=== PATIENT | male | born 1950 | race Caucasian/White ===

== ENCOUNTER 2019-12-04 12:22 | Inpatient (IN) | payer OTHER ==
[~2019-12-04] VITALS: Ht 172.7 cm; Wt 81.1 kg
[~2019-12-04 12:22] MED LIST: PLAVIX 75 MG TA75 MG PO
[2019-12-04 12:23] VITALS: BP 111/63
[2019-12-04] MEDS ORDERED: ATORVASTATIN CA80 MG PO (12:46)
[2019-12-04] MEDS ORDERED: NEURONTIN 300M300 M2 PO (12:46)
[2019-12-04] MEDS ORDERED: LOVASTATIN 20 M20 MG PO (12:46)
[2019-12-04] MEDS ORDERED: SYMBICORT160 MCG/4. INH (12:47)
[2019-12-04] MEDS ORDERED: FLONASE 0.05%50 MCG NARES (12:47)
[2019-12-04] MEDS ORDERED: B12 ACTIVE1000 MCG PO (12:47)
[2019-12-04] MEDS ORDERED: IBUPROFEN 200200 M1 PO (12:47)
[2019-12-04] MEDS ORDERED: ASA81BEC PO (12:47)
[2019-12-04] MEDS ORDERED: COMBIVENT INH (12:48)
[2019-12-04 12:58] LABS: HEMATOCRIT 34.3 % (42.0-52.0); HEMOGLOBIN 11.6 gm/dL (14.0-18.0); MCH 32.8 pg (26.0-34.0); MCHC 33.8 g/dL (28.0-37.0); MPV 6.4 fl. (7.2-11.1); RBC 3.53 mil/uL (4.50-6.00); RDW-CV 15.8 % (10.5-14.5); WBC 7.7 thou/uL (4.0-11.0)
[2019-12-04 13:08] LABS: CALCIUM 8.2 mg/dL (8.5-10.1); CREATININE 2.3 mg/dL (0.6-1.3); POTASSIUM 3.4 mmol/L (3.5-5.1)
[2019-12-04 13:10] LABS: APTT 25.2 Seconds (25.0-31.3); PROTIME 10.7 Seconds (9.20-11.50)
[2019-12-04 13:12] LABS: ALBUMIN 2.8 g/dL (3.4-5.0); TOTAL BILIRUBIN 0.3 mg/dL (<0.1-1.0); TOTAL PROTEIN 6.6 g/dL (6.4-8.2)
[2019-12-04 15:18] VITALS: BP 128/60
[2019-12-04 16:11] VITALS: BP 133/46
--- NOTE | 2019-12-04 16:43 | EKG ---
[place] [address] ELECTROCARDIOGRAM REPORT Name: JAGDISH PEDRAZA Room: [address] ADM IN M.R.#: [id number] Admission: 12/04/19 Attend Phys: Felipa Sebastian, Discharge: Date of : 50 Date of Service: 12/04/19 1249 Report #: [id number] THIS REPORT FOR: cc: [facility] - Clinic physician unknown [facility] - Clinic physician unknown Rm Bravo MD [facility] ~ THIS REPORT FOR: //name// [facility] ED Test Date: 2019-12-04 Test Time: 12:49:58 Pat Name: JAGDISH PEDRAZA Department: Room: [facility] Gender: M 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: : 1950 Requested By: Eugenia Mulligan Order Number: [id number] MD: Rm Bravo Measurements Intervals [place] Rate: 71 P: 0 [place]: 201 QRS: 38 QRSD: 104 T: 30 QT: 388 QTc: 422 Interpretive Statements Sinus rhythm Borderline low voltage, extremity leads Compared to ECG 12/03/2019 13:18:43 T-wave abnormality persists Electronically Signed On 12-04-2019 16:42:24 AD OPERATIONS SPECIALIST by Rm Bravo [email or web address] <ELECTRONICALLY SIGNED> By: Rm Bravo MD, [facility] 12/04/19 1642 1249 1249 Rm Bravo MD, [facility] /EPI
--- NOTE | 2019-12-04 17:36 | NUR ---
PT ADMITTED TO ROOM 219 VIA CART FROM ED FOLLOWING MRI AT APPROXIMATELY 1600. REPORT RECEIVED FROM RAYA CAMPUZANO. PT ORIENTED TO ROOM AND CALL LIGHT. ADMISSION ASSESSMENT AND HISTORY COMPLETED. REFER TO CHARTING. SEPSIS SCREENING NEGATIVE. PT A&0X3-4, FORGETFUL AT TIMES, GARBLED SPEECH NOTED. NIH COMPLETED- SCORING A 5 DUE TO GARBLED SPEECH, ORIENTATION AND RIGHT FACIAL DROOP. NO DRIFT NOTED TO UPPER OR LOWER EXTREMITIES. PT BROTHER AND SISTER IN [place] AT BEDSIDE. TRACING SR ON THE STEEL FIXER. ON 2L NC SAT 98%. DIMINISHED LUNG SOUNDS NOTED. BEDSWIDE SWALLOW COMPLETED- PT PASSED WITH NO DIFFICULTIES. DIET ADVANCED TO 2 GM NA. IVF. NEURO CONSULT AND PHYSICAL THERAPY CONSULT IN PLACE. PT STATES HE LIVES AT HOME BY HIMSELF IN AN APARTMENT. PT HAD MRI. REFER TO RESULTS. MEDICATIONS PER MAR. PT REPOSITIONS SELF. HOURLY ROUNDING OBSERVED. BED IN LOW POSITION. CALL LIGHT WITHIN REACH. FALL PRECAUTIONS IN PLACE. WILL CONTINUE PLAN OF CARE.
[2019-12-04 20:00] VITALS: BP 97/55
[2019-12-05] VITALS: BP 134/59
--- NOTE | 2019-12-05 03:40 | NUR ---
PT DROWSEY NIHSS 11. DAY SHIFT REPORTED 5. DR DOBSON NOTIFIED. HEPARIN QTT AND CT OF HEAD ORDERED. HEPARIN QTT RUNNING AT 993 UNITS/HR. CT DONE. MRI OF HEAD ORDERED FOR MORNING. TURN Q 2 HRS. NS AT 100MLS/HR. DENIES PAIN. TELEMETRY SHOWS SR PACS. WCTM.
[2019-12-05 04:00] VITALS: BP 116/51
[2019-12-05 04:20] LABS: HEMATOCRIT 30.6 % (42.0-52.0); HEMOGLOBIN 10.5 gm/dL (14.0-18.0); MCH 33.4 pg (26.0-34.0); MCHC 34.3 g/dL (28.0-37.0); MCV 97.3 fL (80.0-100.0); MPV 6.4 fl. (7.2-11.1); RBC 3.15 mil/uL (4.50-6.00); WBC 8.3 thou/uL (4.0-11.0)
[2019-12-05 04:43] LABS: ALBUMIN 2.4 g/dL (3.4-5.0); ALKALINE PHOSPHATASE 83 U/L (46-116); ANION GAP 12 mmol/L (7-16); BUN 24 mg/dL (7-18); CALCIUM 6.9 mg/dL (8.5-10.1); CHLORIDE 107 mmol/L (98-107); CHOLESTEROL 100 mg/dL (<200); CO2 23 mmol/L (21-32); CREATININE 1.9 mg/dL (0.6-1.3); GLUCOSE 111 mg/dL (70-99); HDL CHOLESTEROL 32 mg/dL (>40); LDL CHOLESTEROL 55 mg/dL (<100); MAGNESIUM 1.5 mg/dL (1.8-2.4); POTASSIUM 3.2 mmol/L (3.5-5.1); SGOT 16 U/L (15-37); SGPT 21 U/L (30-65); SODIUM 142 mmol/L (136-145); TC:HDL 3.1 Ratio (Not establshd); TOTAL BILIRUBIN 0.2 mg/dL (<0.1-1.0); TOTAL PROTEIN 5.7 g/dL (6.4-8.2); TRIGLYCERIDE 66 mg/dL (<150); VLDL 13 mg/dL (<40)
[2019-12-05 04:51] LABS: SERUM ASSESSMENT CLEAR
--- NOTE | 2019-12-05 05:11 | NUR ---
PTT BACK AT 68.5. NO CHANGE IN HEPARIN QTT RATE.
--- NOTE | 2019-12-05 06:36 | NUR ---
NO VOID BLADDER SCAN 400. PT UNABLE TO VOID. RUCKER PLACED. AM K+ 3.2. SECOND IV PLACED IV POTASSIUM STARTED.
[2019-12-05 07:50] VITALS: BP 127/61
--- NOTE | 2019-12-05 11:27 | NUR ---
ASSUMED CARE OF PT AT 0730. PT RESTING IN BED. BROTHER AT BEDSIDE. PT ALERT, AWAKE AND ORIENTED X2, GARBLED SPEECH NOTED. PT SLOW TO RESPOND, NIH CHARTED. PT NPO FOR [facility]. DR COLON HERE TO SEE PT. ORDERS RECEIVED FOR 1 L BOLUS NS AND DISCONTINUE HEPARIN GTT. REFER TO EMAR. CURRENT BLOOD PRESSURE 160/73. POTASSIUM BEING REPLACED IV PER ELECTROLYTE PROTOCOL. PT DENIES ANY PAIN OR SHORTNESS OF BREATH. TRACING SR ON THE SEAMLESS HOSIERY KNITTER. ON 2L NC SAT UPPER 90'S, DIMINISHED LUNG SOUNDS. RUCKER TO DEPENDENT DRAINAGE WITH DARK YELLOW URINE. PT GOAL FOR TODAY IS SPEECH THERAPY EVAL, REHAB CONSULT IN PLACE, WORK WITH PHYSICAL AND OCCUPATIONAL THERAPY AND REPLACE MAG AND POTASSIUM. AM ASSESSMENT CHARTED. MEDICATIONS PER DEC. PT REPOSITIONED EVERY 2 HOURS FOR COMFORT. HOURLY ROUNDING OBSERVED. BED IN LOW POSITION. BED ALARM IN PLACE. FALL PRECAUTIONS IN PLACE. CALL LIGHT WITHIN REACH. WILL CONTINUE PLAN OF CARE.
--- NOTE | 2019-12-05 11:40 | NUR ---
Acute rehab consult placed.
--- NOTE | 2019-12-05 12:12 | NUR ---
CM spoke with dtr and brother at bedside. Discussed dispo options, rehab consult placed. Pt resides at home alone, [place], but brother and J LUIS live in [place]. If Pt does not qualify for acute rehab, preference for skilled would be a SNF in or near . Following.
[2019-12-05 12:23] VITALS: BP 160/73
--- NOTE | 2019-12-05 17:48 | 2DMMODE ---
[place] [address] 2 D/M-MODE ECHOCARDIOGRAM Name: JAGDISH PERDAZA Room: [address] IN [facility]#: [id number] Admission: 12/04/19 Attend Phys: Felipa Sebastian, Discharge: Date of : 50 Date of Service: 12/05/19 1747 Report #: [id number] THIS REPORT FOR: cc: [facility] - Clinic physician unknown [facility] - Clinic physician unknown Camacho Figueroa MD [facility] ~ APPROVED REPORT Study performed: 12/05/2019 15:08:30 EXAM: Comprehensive 2D, Doppler, and color-flow Echocardiogram Patient Location: In-Patient Room #: [facility] Status: routine BSA: 1.96 HR: 67 bpm BP: 127/61 mmHg Rhythm: NSR Other Information Study Quality: Good Indications CVA/TIA Echo Enhancing Agent Indication: Rule out Shunt Agent(s) / Amount(s) Used: Agitated Saline 10 cc 2D Dimensions IVSd: 10.54 (7-11mm) LVOT Diam: 21.56 (18-24mm) LVDd: 49.67 mm PWd: 8.65 (7-11mm) Ascending Ao: 33.30 (22-36mm) LVDs: 29.64 (25-40mm) Aortic Root: 28.62 mm Volumes Left Atrial Volume (Systole) LA ESV Index: 23.80 mL/m2 Aortic Valve AoV Peak Jhon.: 1.33 m/s AO Peak Gr.: 7.03 mmHg LVOT Max P.81 mmHg AO Mean Gr.: 4.58 mmHg LVOT Mean P[place]72 [place] [address] 2 D/M-MODE ECHOCARDIOGRAM Name: JAGDISH PEDRAZA Room: [address] IN .R.#: [id number] Admission: 12/04/19 Attend Phys: Felipa Sebastian, Discharge: Date of : 50 Date of Service: 12/05/19 1747 Report #: [id number] LVOT Max V: 0.98 m/s AO V2 VTI: 26.11 cm LVOT Mean V: 0.59 m/s SALOMON (VTI): 2.88 cm2 LVOT V1 VTI: 20.57 cm Mitral Valve E/A Ratio: 0.84 MV Decel. Time: 234.13 ms MV E Max Jhon.: 0.68 m/s MV PHT: 67.90 ms MVA (PHT): 3.24 cm2 TDI E/Lateral E': 5.67 E/Medial E': 6.80 Medial E' Jhon.: 0.10 m/s Lateral E' Jhon.: 0.12 m/s Pulmonary Valve PV Peak Jhon.: 0.95 m/s PV Peak Gr.: 3.64 mmHg Left Ventricle The left ventricle is normal size. There is normal LV segmental wall motion. There is normal left ventricular wall thickness. Left ventricular systolic function is normal. LVEF is 60-65%. Grade I - abnormal relaxation pattern. Right Ventricle The right ventricle is normal size. The right ventricular systolic function is normal. Atria Left atrium is mildly dilated. The interatrial septum is intact with no evidence for an atrial septal defect. The right atrium size is normal. Aortic Valve The aortic valve is normal in structure. No aortic regurgitation is present. There is no aortic valvular stenosis. Mitral Valve The mitral valve is normal in structure. There is no mitral valve regurgitation noted. No evidence of mitral valve stenosis. Tricuspid Valve The tricuspid valve is normal in structure. Unable to assess PA pressure. [place] [address] 2 D/M-MODE ECHOCARDIOGRAM Name: JAGDISH PEDRAZA Room: [address] IN [facility]#: [id number] Admission: 12/04/19 Attend Phys: Felipa Sebastian, Discharge: Date of : 50 Date of Service: 12/05/19 1747 Report #: [id number] Pulmonic Valve The pulmonary valve is normal in structure. There is no pulmonic valvular regurgitation. Great Vessels The aortic root is normal in size. IVC is normal in size and collapses >50% with inspiration. Pericardium There is no pericardial effusion. <Conclusion> The left ventricle is normal size. There is normal left ventricular wall thickness. Left ventricular systolic function is normal. LVEF is 60-65%. Grade I - abnormal relaxation pattern. Left atrium is mildly dilated. The interatrial septum is intact with no evidence for an atrial septal defect. <ELECTRONICALLY SIGNED> By: Camacho Figueroa MD, FACC 12/05/191746 46 46 Camacho Figueroa MD, FACC /INF
--- NOTE | 2019-12-05 18:33 | NUR ---
NO ACUTE CHANGES THROUGHOUT SHIFT. REFER TO CHARTING. POTASSIUM REPLACED PER ELECTROLYTE PROTOCOL. REFER TO EMAR. REDRAW 4.8. MAGNESIUM BEING REPLACED PER ELECTROLYTE PROTOCOL WELL. PT HAD ECHO TODAY. REFER TO RESULTS. FAMILY AT BEDSIDE THROUGHOUT SHIFT. PT WORKED WITH PT AND OT TODAY-TOLERATED FAIR. NIH CHARTED. CONTINUES TO TRACE SR ON THE BUGGY MAN. ON 2L NC SAT UPPER 90'S. PT DENIES ANY PAIN OR SHORTNESS OF BREATH. IVF. NEURO CONSULT IN PLACE. MEDICATIONS PER DEC .PT REPOSITIONED EVERY 2 HOURS FOR COMFORT. HOURLY ROUNDING OBSERVED. BED IN LOW POSITION. BED ALARM IN PLACE. FALL PRECAUTIONS IN PLACE. CALL LIGHT WITHIN REACH. WILL CONTINUE PLAN OF CARE.
[2019-12-05 20:20] VITALS: BP 111/63
[2019-12-06 00:16] VITALS: BP 173/72
[2019-12-06 02:08] LABS: GLYCOHEMOGLOBIN (HGB A1C) 5.9 % (4.8-5.6)
--- NOTE | 2019-12-06 04:23 | NUR ---
PATIENT CONFUSED AND IMPULSIVE THROUGHOUT SHIFT. PULLING AT IV LINE, CATHETER, AND ORNAMENTER. ATTEMPTED TO REDIRECT AND DISTRACT PATIENT BUT UNABLE TO DUE TO PATIENT'S IRRITABILITY. PHYSICIAN CONTACTED AND OBTAINED ORDERS FOR HIS RESTLESSNESS. ADMINISTERED PER DEC WITH EFFECTIVENESS OBSERVED. PATIENT NOW RESTING. PATIENT REMOVED O2 PER NASAL CANNULA, ATTEMPTED TO PUT IN BACK IN PLACE BUT PATIENT SWATTED AND SAID "LEAVE ME THE HELL ALONE." LEFT OXYGEN OFF AND SATS MAINTAINED ABOVE 92%. BLOOD PRESSURE LOWER THAN PHYSICIANS DESIRED PARAMETERS AT BEGINNING OF SHIFT. NEUROLOGY PHYSICIAN NOTIFIED. ORDERS OBTAINED FOR FLUID BOLUS. BP NOW WITHIN DESIRED PARAMETERS. CALL LIGHT WITHIN REACH
[2019-12-06 04:29] VITALS: BP 176/80
[2019-12-06 05:21] LABS: HEMATOCRIT 31.4 % (42.0-52.0); HEMOGLOBIN 10.8 gm/dL (14.0-18.0); MCH 33.1 pg (26.0-34.0); MCHC 34.4 g/dL (28.0-37.0); MCV 96.4 fL (80.0-100.0); MPV 6.1 fl. (7.2-11.1); RBC 3.26 mil/uL (4.50-6.00); RDW-CV 15.9 % (10.5-14.5); WBC 9.9 thou/uL (4.0-11.0)
[2019-12-06 05:36] LABS: ALBUMIN 2.6 g/dL (3.4-5.0); CALCIUM 7.6 mg/dL (8.5-10.1); CREATININE 1.5 mg/dL (0.6-1.3); MAGNESIUM 1.1 mg/dL (1.8-2.4); POTASSIUM 3.9 mmol/L (3.5-5.1); TOTAL BILIRUBIN 0.4 mg/dL (<0.1-1.0); TOTAL PROTEIN 6.1 g/dL (6.4-8.2)
[2019-12-06 08:32] VITALS: BP 165/78
[2019-12-06 12:56] VITALS: BP 104/62
--- NOTE | 2019-12-06 14:51 | NUR ---
CM spoke with rehab services aide, liaison to work on insurance auth for Pt to dc to acute rehab on Monday. CM updated dtr.
--- NOTE | 2019-12-06 15:10 | CON ---
[address] [address] CONSULTATION Name: HOMERJAGDISH TURNER Room: [address] ADM IN M.R.#: [id number] Admission: 12/04/19 Attend Phys: Felipa Sebastian MD Discharge: Date of : 50 Report #: [id number] THIS REPORT FOR: //name// cc: [facility] - [facility] physician unknown [facility] physician unknown ~ THIS REPORT FOR: //name// CC: [facility] unknown Felipa Sebastian [facility] DATE OF SERVICE: 12/05/2019 HISTORY OF PRESENT ILLNESS: This is a 69-year-old male patient who was able to provide some history. His brother provided most of the history. I talked to the nurses and reviewed the patient's records. It would appear this patient's symptoms started about a week and a half ago. He went to check his mailbox and fell. Although it is not clear why he fell, but looks like he may have had some weakness. He went to [facility] for evaluation and management. I do not know what evaluation was done and it dismissed him with physical therapy. Then, he had an episode of speech difficulty and the physical therapy asked him to call 911. They came to this hospital on 12/04 and those records were reviewed. The patient was evaluated in the Emergency Room and subsequently went home and he had aggravation of his neurological deficit and he came back to the Emergency Room and was admitted. Nurses tell me that he is even worse now than he was before. His speech is significantly slurred and he is weak on the right side. REVIEW OF SYSTEMS: Indicate the patient did not have any stroke before, but symptoms started about a week and a half ago and he was at [place]. We are trying to get the records from [place]. From the medication list, it looks like this patient was on aspirin and Plavix and heparin was started last night. Family is pretty certain that the [place] told them that vessel [place]cluded [place]. They never had any imaging study prior to that, so it is not certain how long the vessel was occluded. The patient did receive aspirin when he was here. He also had an imaging study, which was reviewed. It demonstrated finding consistent with left subcortical CVA. His GFR is only 35. His TSH is slightly high. This was his relevant 14-point review of system. PAST MEDICAL HISTORY: Negative for any stroke. FAMILY HISTORY: Negative for early age stroke. SOCIAL HISTORY: His brother is there and he checks on him and he provided most of the history. PHYSICAL EXAMINATION: Indicate that his speech [place] [address] CONSULTATION Name: JAGDISH PEDRAZA Room: [address] IN M.R.#: [id number] Admission: 12/04/19 Attend Phys: Felipa Sebastian MD Discharge: Date of : 50 Report #: [id number] difficult time understanding him. He can still follow commands. It is not possible to check the memory and fund of knowledge. Cranial nerve examination 2-12 indicates right-sided weakness on the face. I cannot tell about visual field. He is weak on the right upper and right lower extremity. He says subjectively his feeling is about the same. I could not look at the fundus. His blood pressure is 127/61 -- where has been running, temperature is 97.7, pulse is 67. LABORATORY DATA: White count is 8.3. His MRI was reviewed and has been summarized above. IMPRESSION: The patient's clinical and radiological finding is consistent with left subcortical cerebrovascular accident. He also has occlusion of the left carotid artery and is not clear how long it is going on, but it was present at least when he was in [place]. The nature of subcortical cerebrovascular accident is that continues to become worse and there is not much we can do about it. I am going to hold his antihypertensive, give him a fluid bolus to get his blood pressure around 160, continue his aspirin and Plavix. Discontinue his heparin. He will need rehabilitation. The patient's brothers questioned whether he can even live independently or not. We will get that evaluation done when he goes to rehab because presently I will think he will need rehab or group home facility. About 50 minutes of time was spent taking care of this patient today and majority was done counseling and coordinating. <ELECTRONICALLY SIGNED> By: Moustapha Ortiz MD 12/06/19 1510 1020 1121Pzarina Ortiz MD /nt
--- NOTE | 2019-12-06 17:40 | NUR ---
ASSUMED CARE OF PATIENT AT APPROX 0730. ALERT AND ORIENTED X2-3. ASSESSMENT COMPLETED AND CHARTED. VSS ON 2 LITERS 02. PATIENT VERY SLEEPY THIS MORNING AND AFTERNOON. MORE ALERT IN THE LATE AFTERNOON AND ATTEMPTING TO GET OUT OF BED. DINNER TRAY SET UP FOR PATIENT. PATIENT WORKED MINIMALLY WITH PT AND OT TODAY. RUCKER REMAINS IN PLACE AND DRAINING DEPENDENTLY. PATIENT UP WITH ASSIST. FALL PRECAUTIONS IN PLACE. CALL LIGHT WITHIN REACH. HOURLY ROUNDS COMPLETED. WILL CONTINUE WITH PLAN OF CARE.
[2019-12-06 19:53] VITALS: BP 173/71
[2019-12-06 20:00] VITALS: BP 190/79
[2019-12-07] VITALS: BP 159/68
[2019-12-07 03:30] VITALS: BP 114/63
--- NOTE | 2019-12-07 04:55 | NUR ---
ASSUMED PATIENT CARE AT 1900. PATIENT ALERT TO SELF AND PLACE. RUCKER IN PLACE TO DEPENDENT DRAINAGE. NO COMPLAINTS OF PAIN OR DISCOMFORT NOTED. VITAL SIGNS REMAIN STABLE THROUGH THE SHIFT. PATIENT DID NOT DISPLAY ANY IMPULSIVENESS OR TRY TO GET OUT OF THE BED THROUGH THE NIGHT. SUPERVISOR TRAIN OPERATIONS AND HOURLY ROUNDING COMPLETED DOCUMENTED.
[2019-12-07 09:00] VITALS: BP 136/79
--- NOTE | 2019-12-07 09:00 | NUR ---
ASSUMED PT. CARE AND RECEIVED REPORT AT 0730. PT AWAKE, UP TO CHAIR, ORIENTATED TO SELF ONLY. PT. IMPULSIVE, WANTS TO GET UP AND LEAVE. PT. NEEDS REDIRECT MULTIPLE TIMES. FULL ASSESSMENT COMPLETED, REFER TO CHARTING. NO CHANGE TO NIH. PT. DENIES CURRENT PAIN/SOB. FALL PRECAUTIONS IN PLACE, WILL CONTINUE WITH PLAN OF CARE.
[2019-12-07 11:55] VITALS: BP 152/84
[2019-12-07 16:00] VITALS: BP 164/77
[2019-12-07 20:00] VITALS: BP 196/79
[2019-12-08] VITALS (8 sets, daily range): BP systolic 140–202; BP diastolic 54–145
--- NOTE | 2019-12-08 05:03 | NUR ---
ASSUMED PATIENT CARE AT 1900. PATIENT VERY RESTLESS AND ATTEMPTING TO CLIMB OUT OF BED. HS MEDS GIVEN AND PATIENT WAS ABLE TO SLEEP THROUGH THE NIGHT. ALERT TO SELF. NO COMPLAINTS OF PAIN OR DISCOMFORT NOTED. PAYABLE PROCESSOR AND HOURLY ROUNDING COMPLETED CHARTED.
--- NOTE | 2019-12-08 16:36 | NUR ---
ASSUMED CARE OF PATIENT AT APPROX 0730. ALERT AND ORIENTED X1-2. PATIENT VERY CONFUSED, IMPULSIVE AND AGITATED AT TIMES, SWEARING AT HIS FAMILY AND STAFF MEMBERS, ATTEMPTING TO GET OUT OF BED AND LEAVE. BLOOD PRESSURES ELEVATED THIS AFTERNOON LIKELY RELATED TO INCREASED AGITATION. DR SANTOS PAGED AND ORDERED ATIVAN FOR ANXIETY. ASESSMENTS COMPLETED AND CHARTED. VSS ON ROOM AIR. RUCKER IN PLACE AND DRAINING DEPENDENTLY, PATIENT PULLING AT RUCKER AND REMOVED STAT LOCK; REPLACED AND WRAPPED COBAN AROUND IT. FALL PRECAUTIOINS IN PLACE. CALL LIGHT IN REACH. HOURLY ROUNDS COMPLETED. WILL CONTINUE WITH PLAN OF CARE.
--- NOTE | 2019-12-08 19:45 | NUR ---
RECEIVED REPORT AND ASSUMED CARE OF PT, ASSESSMENT COMPLETED. PT SLEEPING BUT AWAKENS EASILY. DOES FOLLOW COMMANDS. UNABLE TO DO NIH AT THIS TIME DUE TO SLEEPING BUT MOVING MO ARMS AND LEGS WITHOUT DIFFICULTY. SPEECH CLEAR AND APPROPRIATE YES/NO. TELEMETRY ON SHOWING SA WITH HX OF A-FIB. SITTER AT BEDSIDE FOR SAFETY AND PULLING AT TUBES. WILL CONT TO MONITOR AND ASSIST NEEDED.
[2019-12-09 04:00] VITALS: BP 139/49
--- NOTE | 2019-12-09 07:03 | NUR ---
SLEPT SOUNDLY TONIGHT. ASSISTED TO BSC BUT UNABLE TO HAVE BM. RUCKER PATENT. PT HAS BEEN CALM AND COOPERATIVE. MOVING SELF IN BED, REMAINS NAKED PER PT CHOICE. TELEMETRY CONT TO SHOW SA/SR. HS GOALS OF REST AND SAFETY ACHIEVED. SITTER AT BEDSIDE ALL NIGHT BUT WILL ATTEMPT TO GO WITHOUT SITTER DUE TO BEING CALM.
[2019-12-09 07:30] VITALS: BP 142/56
[2019-12-09 07:47] LABS: HEMATOCRIT 30.5 % (42.0-52.0); HEMOGLOBIN 10.4 gm/dL (14.0-18.0)
[2019-12-09] MEDS ORDERED: ELIQUIS5 MG PO (10:16)
[2019-12-09] MEDS ORDERED: MIDODRINE HCL 55 M1 PO (10:18)
[2019-12-09 10:24] VITALS: BP 142/56
[2019-12-09 12:00] VITALS: BP 152/52
--- NOTE | 2019-12-09 14:48 | NUR ---
Spoke with Pt's dtr at bedside. If Pt ends up not being able to go to acute rehab, dtr would like to try and get Pt to [facility] for skilled. CM contacted [facility] to confirm that they have a PA contract. Plan tele psych consult for medication mgmt. No sitter in room, Pt calm and coorperative.
[2019-12-09 16:00] VITALS: BP 184/83
--- NOTE | 2019-12-09 16:57 | NUR ---
ASSUMED CARE OF PATIENT AT APPROX 0730. ALERT AND ORIENTED X1-2. ASSESSMENT COMPLETED AND CHARTED. VSS ON ROOM AIR. PATIENT CONFUSED AND IMPULSIVE BUT EASILY REDIRECTED. PATIENT UP TO BEDSIDE COMMODE WITH ASSIST. REFUSING TO WORK WITH THERAPY THIS AFTERNOON. PATIENT NOW MED-SURG STATUS. FALL PRECAUTIONS IN PLACE. CALL LIGHT WITHIN REACH. HOURLY ROUNDS COMPLETE. WILL CONTINUE WITH PLAN OF CARE.
--- NOTE | 2019-12-09 17:12 | NUR ---
I have reviewed the documentation by AIXA MENDEZ from 12/09/19 to 12/09/19 and I concur with it. MISSAEL SHAHID
[2019-12-09 19:45] VITALS: BP 189/71
--- NOTE | 2019-12-09 19:45 | NUR ---
RECEIVED REPORT AND ASSUMED CARE OF PT, ASSESSMENT COMPLETED. PT REMAINS WITHOUT CLOTHES, WHEN ON BECOMES IRRITATED AND RESTLESS, COVERS ON. AT PRESENT TIME CALM AND COOPERATIVE. WILL CONT TO MONITOR AND ASSIST NEEDED.
[2019-12-10 04:00] VITALS: BP 194/90
[2019-12-10 04:57] LABS: HEMATOCRIT 32.6 % (42.0-52.0); HEMOGLOBIN 11.1 gm/dL (14.0-18.0); MCH 32.8 pg (26.0-34.0); MCHC 34.1 g/dL (28.0-37.0); MCV 96.1 fL (80.0-100.0); MPV 5.7 fl. (7.2-11.1); RBC 3.39 mil/uL (4.50-6.00); RDW-CV 15.5 % (10.5-14.5); WBC 7.9 thou/uL (4.0-11.0)
[2019-12-10 05:41] LABS: ALBUMIN 2.7 g/dL (3.4-5.0); CALCIUM 8.1 mg/dL (8.5-10.1); CREATININE 1.4 mg/dL (0.6-1.3); MAGNESIUM 1.8 mg/dL (1.8-2.4); POTASSIUM 3.5 mmol/L (3.5-5.1); TOTAL BILIRUBIN 0.4 mg/dL (<0.1-1.0); TOTAL PROTEIN 6.7 g/dL (6.4-8.2)
--- NOTE | 2019-12-10 07:01 | NUR ---
SLEPT WELL. WHEN AWAKE WAS GRUFF AND DID NOT WANT TO BE BOTHERED. DID NOT ATTEMPT TO GET OUT OF BED. RETURNED TO SLEEP EASILY. HS GOALS OF REST AND SAFETY ACHIEVED. HOURLY ROUNDING OBSERVED.
[2019-12-10 08:00] VITALS: BP 174/63
--- NOTE | 2019-12-10 12:09 | NUR ---
I have reviewed the documentation by AIXA MENDEZ from 12/10/19 to 12/10/19 and I concur with it. MISSAEL SHAHID
--- NOTE | 2019-12-10 13:47 | NUR ---
VSS, PT ORIENTED TO SELF, MED SURG STATUS, RUCKER CATHETER, UP WITH ONE TO BEDSIDE COMMODE OR TOILET, HIGH FALL RISK, HOURLY ROUNDING PERFORMED, POSSESSIONS AND CALL LIGHT WITHIN REACH. WAITING FOR REHAB.
[2019-12-10 16:50] VITALS: BP 157/65
[2019-12-10 17:18] VITALS: BP 186/78
[2019-12-10 19:50] VITALS: BP 202/89
[2019-12-10 23:00] VITALS: BP 164/79
--- NOTE | 2019-12-11 03:50 | NUR ---
ASSUMED CARE OF PT AT 1900. PT WAS CONFUSED AND AGITATED. PT WAS ALSO TRYING TO GET OUT OF BED. PTS BP WAS ELEVATED AND WAS TREATED. BP TREATED WITH LOPRESSOR AND APRESOLINE. PT IS IN SINUS RYTHM. PT RESTING COMFORTABLY IN BED. RESPIRATIONS ARE EVEN AND NONLABORED. WILL CONTINUE TO MONITOR PT.
[2019-12-11 08:00] VITALS: BP 182/83
[2019-12-11 11:44] VITALS: BP 145/70
[2019-12-11 19:50] VITALS: BP 198/87
--- NOTE | 2019-12-11 20:22 | NUR ---
PT VSS WITH THE EXCEPTION OF HYPERTENSION. MED SURG STATUS, ORIENTED TO SELF, UP WITH ONE, CONFUSED AND WILL CLIMB OUT OF BE WITHOUT USING CALL LIGHT. RUCKER CATHETER REMOVED, POSSESSIONS AND CALL LIGHT WITHIN REACH, HOURLY ROUNDING PERFORMED
[2019-12-12] VITALS: BP 170/69
--- NOTE | 2019-12-12 00:30 | NUR ---
ASSUMED CARE OF PT AT 1900. PT IS CONFUSED AND AGITATED AT THE BEGINNING OF THE SHIFT. PT IS MORE CALM NOW. PTS BP WAS ELEVATED. PT RECIEVED METOPROLOL AND HYDRALAZINE AT THAT TIME. PT IS MED SURG STATUS. PT IS SLEEPING COMFORTABLY IN BED. RESPIRATIONS ARE EVEN AND NONLABORED. WILL CONTINUE TO MONITOR PT.
[2019-12-12 08:00] VITALS: BP 169/62
--- NOTE | 2019-12-12 10:00 | NUR ---
CM faxed facesheet to [facility], it is likely that Pt will need LTC at some point. Dtr aware and in agreement, available to provided needed documentation.
[2019-12-12] MEDS ORDERED: HYDRALAZINE 2525 MG PO (11:10)
[2019-12-12] MEDS ORDERED: PROZAC10 M1 PO (11:10)
[2019-12-12] MEDS ORDERED: ZYPREXA 5 MG TAB5 M1 PO (11:10)
[2019-12-12] MEDS ORDERED: NAMENDA 10 MG T10 MG PO (11:10)
--- NOTE | 2019-12-12 13:35 | NUR ---
Dtr spoke with , plan for skilled then possibily to LTC. Faxed referral to [facility], they have accepted clinically, they are [facility]. Possible dc later today or tomorrow. Following.
[2019-12-12 15:48] VITALS: BP 165/54
[2019-12-12 20:00] VITALS: BP 124/63; BP 162/73
--- NOTE | 2019-12-12 20:16 | NUR ---
VSS, HYPERTENSIVE. ORIENTED TO SELF, TIME AND PLACE. INCONTINENT OF BLADDER. LETHARGIC BUT IMPULSIVE, HOURLY ROUNDING PERFORMED, POSSESSIONS AND CALL LIGHT WITHIN REACH. POOR APPETITE. MED SURG STATUS, NO IV
[2019-12-13] VITALS: BP 134/53
--- NOTE | 2019-12-13 04:49 | NUR ---
ASSUMED CARE OF PT AFTER REPORT AT 1930. PT A&OX1. ONLY ORIENTED TO SELF. CONFUSED. VSS. PHYSICAL ASSESSMENT COMPLETED AND CHARTED. PT ON RA. PT ON MEDSURG STATUS. PT UNCOOPERATIVE WITH NIH ASSESSMENT. PT DENIES ANY PAIN OR DISCOMFORT. PT ABLE TO SLEEP WELL ON BED. CALL LIGHT WITHIN REACH.
[2019-12-13 08:05] VITALS: BP 173/77
--- NOTE | 2019-12-13 11:27 | NUR ---
SW called [facility] and spoke with admissions who said that pt does not have [place] SNF benefits. SW discussed possible Medicare to which [facility] admissions to possible accept under Medicare benefits but said that since pt does not have secondary insurance, they would want to screen for eligibility for Medicaid prior to accepting. SW to continue to follow to assist with finalizing safe dc plan for SNF placement today.
--- NOTE | 2019-12-13 13:38 | NUR ---
Nutrition: Pt assessed for LOS. Has been trying to disch. Awaiting ins auth for SNF today. Poor appetite noted, per RN. Wt: 174#, no significant wt changes. Alb 2.7, prealb 12. 2gm Na diet. Apparently, pt is noncompliant. No nutrition interventions needed at this time. Low risk.
[2019-12-13 16:00] VITALS: BP 170/62
[2019-12-13 16:23] VITALS: BP 142/56
--- NOTE | 2019-12-13 18:58 | NUR ---
PATIENT AWAKE IN BED WITH FAMILY AT BEDSIDE. PATIENT AMBULATED WITH WALKER, GAIT BELT,AND STAND BY ASSISTANCE IN ROOM TO BATHROOM THROUGHOUT SHIFT. ALL SAFETY MEASURES MAINTAINED. DISCHARGE PAPERWORK REVIEWED WITH PATIENT AND DAUGHTER. PATIENT'S DAUGHTER DENIES FURTHER QUESTIONS. PATIENT DENIES FURTHER NEEDS. REPORT GIVEN TO [facility] [place] AT 1715. PATIENT HAD BM THIS SHIFT.
[2019-12-13 20:17] VITALS: BP 142/56
== END 2019-12-13 19:45 | DRG 64 ==
LOC: M.ERS 12:22 → M.TBA-ER 13:47 → M.2W 13:47 → M.3W 12-13 06:59
PROVIDERS: Internal Medicine; Personal Emergency Response Attendant; ADMIT Internal Medicine
DX: I63.89 Other cerebral infarction (principal); N17.0 Acute kidney failure with tubular necrosis; G92 Toxic encephalopathy; E78.5 Hyperlipidemia, unspecified; J44.9 Chronic obstructive pulmonary disease, unspecified; F17.210 Nicotine dependence, cigarettes, uncomplicated; I73.9 Peripheral vascular disease, unspecified; I12.9 Hypertensive chronic kidney disease with stage 1 through stage 4 chronic kidney disease, or unspecified chronic kidney disease; I48.0 Paroxysmal atrial fibrillation; N18.3 Chronic kidney disease, stage 3 (moderate); F03.90 Unspecified dementia, unspecified severity, without behavioral disturbance, psychotic disturbance, mood disturbance, and anxiety; Z79.899 Other long term (current) drug therapy; Z79.82 Long term (current) use of aspirin; Z86.73 Personal history of transient ischemic attack (TIA), and cerebral infarction without residual deficits; Z91.19 Patient's noncompliance with other medical treatment and regimen; Z72.89 Other problems related to lifestyle; Z79.01 Long term (current) use of anticoagulants